=== PATIENT | female | born 1955 | race American Indian/Alaskan Native ===

== ENCOUNTER 2019-07-15 10:38 | Outpatient (CLI) | payer OTHER ==
--- NOTE | 2019-07-15 13:01 | Mammography Report ---
BILATERAL DIGITAL SCREENING MAMMOGRAM WITH CAD INDICATION: Routine screening mammography. TECHNIQUE: Digital bilateral 2D mammography was obtained in the craniocaudal and mediolateral obliq ue projections. This examination was interpreted with the benefit of Computer-Aided Detection asteri s. COMPARISON: 05/07/2018, 05/11/2016, 09/17/2014. FINDINGS: Breast Density: The breasts are almost entirely fatty. No suspicious mass, microcalcifications, or architectural distortion. Stable mild reduction changes b ilaterally. IMPRESSION: No evidence of breast malignancy. Recommend routine screening mammogram in one year. BI-RADS Category 2: Benign. No mammographic evidence of malignancy. Recommend routine screening ma mmography in one year. A "normal" or negative report should not discourage follow up or biopsy of a clinically significant f inding. A written summary of these findings will be mailed to the patient. The patient will be entered into a mammography reporting system which will generate a reminder letter for the patient's next appointmen t at the appropriate interval. The [employer] recommends yearly mammograms starting at age 40 and continuing as l maggie as a woman is in good health. Breast MRI is recommended for women with an approximate 20-25% or greater lifetime risk of breast cancer, including women with a strong family history of breast or ova alonso cancer or who have been treated for Hodgkin's disease. Signer Name: Norman Valencia MD Signed: 07/15/2019 12:56 PM Workstation Name: [id number]
== END 2019-07-15 10:39 | disposition home or self-care (01) ==
LOC: MAMMO 10:38
PROVIDERS: ATTEND Family Medicine
DX: Z12.31 Encounter for screening mammogram for malignant neoplasm of breast (principal); N64.89 Other specified disorders of breast
CPT/HCPCS: 77067

== ENCOUNTER 2021-05-07 10:45 | Emergency (ER) | payer OTHER ==
[2021-05-07] MEDS ORDERED: ASPIRIN 81 MG TAB CHEW PO ONE (11:17)
--- NOTE | 2021-05-07 11:21 | Emergency Department Report ---
ED Chest Pain HPI - General Chief Complaint: Chest Pain Stated Complaint: CHEST PAIN Time Seen by Provider: 05/07/21 11:01 Source: patient Mode of arrival: Ambulatory Limitations: No Limitations - History of Present Illness Initial Comments: 65-year-old -[place] female presents to the emergency department with a complaint of some midsternal chest pain that has been going on intermittently over the past few months. It is associated with some intermittent shortness of breath. She denies any fever, cough, vomiting, back pain, lower extremity swelling, and she denies radiation of the pain. Patient says that sometimes the pain will occur when she is laying down flat, but she is usually able to sit up and the pain will dissipate. She says that sometimes it will occur if she is standing up for a while cooking. However, overall, she denies that exertion brings on the chest pain. Sometimes exertion causes her to have shortness of breath. Patient has not been seen for the symptoms over the past 2 months and finally came in today because it has started to occur more often including multiple times yesterday, overnight, and then again this morning. At the time of my initial examination the patient is asymptomatic. She denies any past medical history other than diet-controlled diabetes. She is not a smoker and denies any illicit drug use. Patient travel to [place] about 1 month ago. She denies any family history of early cardiac disease or ID. The patient did take an aspirin yesterday. - Related Data Allergies Allergy/AdvReac Type Severity Reaction Status Date / Time No Known Allergies Allergy Verified 05/07/21 10:46 Heart Score - HEART Score History: Slightly suspicious EKG: Normal Age: > 65 Risk factors: 1-2 risk factors Troponin: < normal limit HEART Score: 3 - EKG Read Time Time EKG Completed: 10:51 EKG Read Time: 10:55 ED Review of Systems ROS: Stated complaint: CHEST PAIN Other details as noted in HPI Comment: All other systems reviewed and negative Constitutional: denies: chills, fever Eyes: denies: eye pain, vision change ENT: denies: ear pain, throat pain Respiratory: shortness of breath (Intermittent). denies: cough Cardiovascular: chest pain (Intermittent). denies: edema Gastrointestinal: denies: abdominal pain, vomiting Genitourinary: denies: dysuria, discharge Musculoskeletal: denies: back pain, arthralgia Skin: denies: rash, lesions Neurological: denies: headache, weakness ED Past Medical Hx - Past Medical History Hx Diabetes: Yes - Surgical History Past Surgical History?: No - Social History Smoking Status: Never Smoker ED Physical Exam - General Limitations: No Limitations - Other Other exam information: GENERAL: The patient is well-developed well-nourished. HENT: Normocephalic. Atraumatic. Patient has moist mucous membranes. EYES: Extraocular motions are intact. NECK: Supple. Trachea is midline. CHEST/LUNGS: Clear to auscultation. There is no respiratory distress noted. No chest pain to palpation of the chest wall. No crepitus or deformity. HEART/CARDIOVASCULAR: Regular. There is no tachycardia. There is no murmur. ABDOMEN: Abdomen is soft, nontender. Patient has normal bowel sounds. There is no abdominal distention. SKIN: Skin is warm and dry. NEURO: The patient is awake, alert, and oriented. The patient is cooperative. The patient has no focal neurologic deficits. Normal speech. MUSCULOSKELETAL: There is no tenderness or deformity. There is no limitation range of motion. ED Course Vital Signs 05/07/21 05/07/21 05/07/21 11:03 11:08 11:15 Temperature Pulse Rate 61 69 63 Respiratory 18 15 Rate Blood Pressure 159/67 O2 Sat by Pulse 95 99 Oximetry 05/07/21 05/07/21 05/07/21 11:23 11:31 11:45 Temperature 98.0 F Pulse Rate 72 68 60 Respiratory 15 18 Rate Blood Pressure 159/67 159/67 O2 Sat by Pulse 96 Oximetry 05/07/21 05/07/21 05/07/21 12:01 12:15 12:31 Temperature Pulse Rate 63 64 72 Respiratory 14 16 18 Rate Blood Pressure 159/67 159/67 159/67 O2 Sat by Pulse 76 L 92 96 Oximetry 05/07/21 05/07/21 05/07/21 12:45 13:01 13:15 Temperature Pulse Rate 62 63 65 Respiratory 20 14 12 Rate Blood Pressure 159/67 159/67 159/67 O2 Sat by Pulse 97 95 94 Oximetry 05/07/21 05/07/21 05/07/21 13:36 13:45 14:00 Temperature Pulse Rate 89 67 64 Respiratory 19 24 20 Rate Blood Pressure 159/67 138/94 131/111 O2 Sat by Pulse 99 98 Oximetry 05/07/21 05/07/21 05/07/21 14:15 14:32 14:45 Temperature Pulse Rate 64 67 Respiratory 16 12 Rate Blood Pressure 131/111 131/111 O2 Sat by Pulse 91 100 Oximetry 05/07/21 05/07/21 05/07/21 15:01 15:15 15:31 Temperature Pulse Rate 67 69 71 Respiratory 13 9 L 15 Rate Blood Pressure 131/111 131/111 131/111 O2 Sat by Pulse 100 Oximetry 05/07/21 05/07/21 05/07/21 15:45 16:01 16:15 Temperature Pulse Rate 58 L 61 60 Respiratory 11 L 13 12 Rate Blood Pressure 131/111 131/111 131/111 O2 Sat by Pulse 97 100 97 Oximetry 05/07/21 05/07/21 05/07/21 16:31 16:45 17:01 Temperature Pulse Rate 70 74 74 Respiratory 22 22 23 Rate Blood Pressure 131/111 131/111 130/80 O2 Sat by Pulse 81 L 94 95 Oximetry 05/07/21 17:15 Temperature Pulse Rate 73 Respiratory 18 Rate Blood Pressure 130/80 O2 Sat by Pulse 94 Oximetry GRIFFIN score - Griffin Score Age > 65: (0) No Aspirin use within the Past 7 Days: (1) Yes 3 or more CAD Risk Factors: (0) No 2 or more Angina events in past 24 hrs: (1) Yes Known CAD with more than 50% Stenosis: (0) No Elevated Cardiac Markers: (0) No ST Deviation Greater than 0.5mm: (0) No GRIFFIN Score: 2 ED Medical Decision Making - Lab Data Result diagrams: 05/07/21 11:48 05/07/21 11:48 Lab Results 05/07/21 05/07/21 05/07/21 Range/Units 11:48 11:48 11:48 WBC 6.9 (4.5-11.0) K/mm3 RBC 5.36 H (3.65-5.03) M/mm3 Hgb 14.0 (10.1-14.3) gm/dl Hct 43.7 H (30.3-42.9) % MCV 82 (79-97) fl MCH 26 L (28-32) pg MCHC 32 (30-34) % RDW 15.0 (13.2-15.2) % Plt Count 304 (140-440) K/mm3 Lymph % (Auto) 47.2 H (13.4-35.0) % Churchill % (Auto) 7.6 H (0.0-7.3) % Eos % (Auto) 1.9 (0.0-4.3) % Baso % (Auto) 0.9 (0.0-1.8) % Lymph # (Auto) 3.3 (1.2-5.4) K/mm3 Churchill # (Auto) 0.5 (0.0-0.8) K/mm3 Eos # (Auto) 0.1 (0.0-0.4) K/mm3 Baso # (Auto) 0.1 (0.0-0.1) K/mm3 Seg Neutrophils % 42.4 (40.0-70.0) % Seg Neutrophils # 2.9 (1.8-7.7) K/mm3 D-Dimer 386.73 H (0-234) ng/mlDDU Sodium 139 (137-145) mmol/L Potassium 4.1 (3.6-5.0) mmol/L Chloride 103.1 (98-107) mmol/L Carbon Dioxide 23 (22-30) mmol/L Anion Gap 17 mmol/L BUN 7 (7-17) mg/dL Creatinine 0.8 (0.6-1.2) mg/dL Estimated GFR > 60 ml/min BUN/Creatinine Ratio 9 % Glucose 98 (65-100) mg/dL Calcium 9.4 (8.4-10.2) mg/dL Total Bilirubin 0.60 (0.1-1.2) mg/dL AST 17 (5-40) units/L ALT 17 (7-56) units/L Alkaline Phosphatase 83 (35-129) units/L Troponin T (0.00-0.029) ng/mL Total Protein 7.8 (6.3-8.2) g/dL Albumin 3.7 L (3.9-5) g/dL Albumin/Globulin Ratio 0.9 % 05/07/21 05/07/21 Range/Units 12:46 16:09 WBC (4.5-11.0) K/mm3 RBC (3.65-5.03) M/mm3 Hgb (10.1-14.3) gm/dl Hct (30.3-42.9) % MCV (79-97) fl MCH (28-32) pg MCHC (30-34) % RDW (13.2-15.2) % Plt Count (140-440) K/mm3 Lymph % (Auto) (13.4-35.0) % Churchill % (Auto) (0.0-7.3) % Eos % (Auto) (0.0-4.3) % Baso % (Auto) (0.0-1.8) % Lymph # (Auto) (1.2-5.4) K/mm3 Churchill # (Auto) (0.0-0.8) K/mm3 Eos # (Auto) (0.0-0.4) K/mm3 Baso # (Auto) (0.0-0.1) K/mm3 Seg Neutrophils % (40.0-70.0) % Seg Neutrophils # (1.8-7.7) K/mm3 D-Dimer (0-234) ng/mlDDU Sodium (137-145) mmol/L Potassium (3.6-5.0) mmol/L Chloride (98-107) mmol/L Carbon Dioxide (22-30) mmol/L Anion Gap mmol/L BUN (7-17) mg/dL Creatinine (0.6-1.2) mg/dL Estimated GFR ml/min BUN/Creatinine Ratio % Glucose (65-100) mg/dL Calcium (8.4-10.2) mg/dL Total Bilirubin (0.1-1.2) mg/dL AST (5-40) units/L ALT (7-56) units/L Alkaline Phosphatase (35-129) units/L Troponin T < 0.010 < 0.010 (0.00-0.029) ng/mL Total Protein (6.3-8.2) g/dL Albumin (3.9-5) g/dL Albumin/Globulin Ratio % - EKG Data -: EKG Interpreted by Me EKG shows normal: sinus rhythm, axis, intervals, QRS complexes, ST-T waves Rate: normal - EKG Data When compared to previous EKG there are: previous EKG unavailable Interpretation: normal EKG - Radiology Data Radiology results: report reviewed, image reviewed interpreted by me: Chest x-ray does not show any acute process. There are no pleural effusions, obvious pneumonia and there is no pneumothorax. No widened mediastinum. CTA CHEST WITH IV CONTRAST INDICATION / CLINICAL INFORMATION: CP, elevated dimer. TECHNIQUE: Axial CT images were obtained through the chest after injection of 100 mL IV contrast. 3 plane MIP and/or 3D reconstructions were produced. All CT scans at this location are performed using CT dose reduction for ALARA by means of automated exposure control. COMPARISON: Chest radiograph earlier today FINDINGS: PULMONARY ARTERIES: No pulmonary emboli. THORACIC AORTA: No significant abnormality. HEART: No significant abnormality. CORONARY ARTERIES: No significant calcification. PLEURA: No pleural effusion. No pneumothorax. LYMPH NODES: No significant adenopathy. LUNGS: No acute air space or interstitial disease. ADDITIONAL FINDINGS: None. UPPER ABDOMEN: No acute findings. SKELETAL STRUCTURES: No significant osseous abnormality. IMPRESSION: 1. No CT evidence for pulmonary embolism. 2. No acute pulmonary disease. - Medical Decision Making This patient presents to the emergency department with a complaint of intermittent chest pains and intermittent shortness of breath that is been going on over the past few months but has worsened recently. On examination the patient is asymptomatic. Normal sounding heart and lungs to auscultation and the patient does not appear in any respiratory or acute distress. EKG does not have any morphology consistent with ST elevation myocardial infarction. Labs have been mostly unremarkable including CBC, metabolic panel, negative troponins x2, but the patient did have a slightly elevated and equivocal D-dimer level. For this reason a CT angiography of the chest was done that does not show any evidence of pulmonary embolism, dissection, or any other acute process. The patient was reevaluated multiple times over about 6 hours in this emergency department and there has been no return of any chest pain or signs of distress. Vital signs have been reassuring throughout her ED course including being afebrile. She is low on the heart and GRIFFIN score. For all these reasons the patient appears safe for discharge home at this time. Her contact information has been sent over to the [facility], and someone from their office should be contacting her shortly for close outpatient follow-up as part of our [facility] low risk chest pain protocol. Critical Care Time: No Critical care attestation.: If time is entered above; I have spent that time in minutes in the direct care of this critically ill patient, excluding procedure time. ED Disposition Clinical Impression: Atypical chest pain Disposition: HOME / SELF CARE / HOMELESS Is pt being admited?: No Condition: Stable Instructions: Nonspecific Chest Pain, Adult Additional Instructions: Please follow-up with your primary care physician in the next few days. I have sent your contact information over to the [facility], and someone from their office should be contacting you shortly for close outpatient follow-up. Just in case, I am giving you a referral for one of their mechanic insulator, Dr. Yu. Return to the emergency department with any worsening of your symptoms, new or concerning symptoms not addressed during this current emergency department visit, or with any acute distress. Referrals: [facility] [Other] - 3-5 Days CINDI YU MD [Staff Physician] - 3-5 Days Time of Disposition: 17:22
[2021-05-07 11:57] LABS: Basophils # (Auto) 0.1 K/mm3 (0.0-0.1); Basophils % (Auto) 0.9 % (0.0-1.8); Eosinophils # (Auto) 0.1 K/mm3 (0.0-0.4); Eosinophils % (Auto) 1.9 % (0.0-4.3); Hematocrit 43.7 % (30.3-42.9); Lymphocytes # (Auto) 3.3 K/mm3 (1.2-5.4); Lymphocytes % (Auto) 47.2 % (13.4-35.0); Mean Corpuscular HGB Conc 32 % (30-34); Mean Corpuscular Volume 82 fl (79-97); Monocytes # (Auto) 0.5 K/mm3 (0.0-0.8); Monocytes % (Auto) 7.6 % (0.0-7.3); Platelet Count 304 K/mm3 (140-440); Red Blood Count 5.36 M/mm3 (3.65-5.03)
--- NOTE | 2021-05-07 12:10 | XRay Report ---
CHEST 1 VIEW INDICATION / CLINICAL INFORMATION: CP STUDY TIME: 1120 COMPARISON: None currently available FINDINGS: SUPPORT DEVICES: None HEART / MEDIASTINUM: No significant abnormality. LUNGS / PLEURA: No significant acute pulmonary or pleural abnormality. No pneumothorax. ADDITIONAL FINDINGS: No significant additional findings. IMPRESSION: No significant acute abnormality Signer Name: Mario Blackmon MD Signed: 05/07/2021 12:06 PM Workstation Name: [id number]
[2021-05-07 13:26] LABS: Alanine Aminotransferase 17 units/L (7-56); Albumin 3.7 g/dL (3.9-5); BUN/Creatinine Ratio 9; Blood Urea Nitrogen 7 mg/dL (7-17); Calcium 9.4 mg/dL (8.4-10.2); Hemolysis Index 23
--- NOTE | 2021-05-07 14:51 | Cat Scan Report ---
CTA CHEST WITH IV CONTRAST INDICATION / CLINICAL INFORMATION: CP, elevated dimer. TECHNIQUE: Axial CT images were obtained through the chest after injection of 100 mL IV contrast. 3 plane MIP an d/or 3D reconstructions were produced. All CT scans at this location are performed using CT dose redu ction for [facility] by means of automated exposure control. COMPARISON: Chest radiograph earlier today FINDINGS: PULMONARY ARTERIES: No pulmonary emboli. THORACIC AORTA: No significant abnormality. HEART: No significant abnormality. CORONARY ARTERIES: No significant calcification. PLEURA: No pleural effusion. No pneumothorax. LYMPH NODES: No significant adenopathy. LUNGS: No acute air space or interstitial disease. ADDITIONAL FINDINGS: None. UPPER ABDOMEN: No acute findings. SKELETAL STRUCTURES: No significant osseous abnormality. IMPRESSION: 1. No CT evidence for pulmonary embolism. 2. No acute pulmonary disease. Signer Name: Christal Herrera MD Signed: 05/07/2021 2:46 PM Workstation Name: [id number]
[2021-05-07 17:21] VITALS: BP 130/80
--- NOTE | 2021-05-08 13:25 | Electrocardiograph Report ---
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
== END 2021-05-07 17:33 | disposition home or self-care (01) ==
LOC: ED 10:45
DX: R07.89 Other chest pain (principal); E11.8 Type 2 diabetes mellitus with unspecified complications
CPT/HCPCS: 36415; 71045; 71275; 80053; 84484; 85025; 85379; 93005; 99284; Q9967

== ENCOUNTER 2021-10-18 10:12 | Outpatient (CLI) | payer OTHER ==
--- NOTE | 2021-10-19 16:56 | Mammography Report ---
DIGITAL SCREENING MAMMOGRAM WITH CAD, 10/18/2021 CLINICAL INFORMATION / INDICATION: Routine screening mammography. TECHNIQUE: Digital bilateral 2D mammography was obtained in the craniocaudal and mediolateral obliqu e projections. This examination was interpreted with the benefit of Computer-Aided Detection analysis . COMPARISON: 07/15/2019, 05/07/2018 FINDINGS: Breast Density: The breasts are almost entirely fatty. No dominant mass, suspicious calcifications, or architectural distortion in either breast. Post-surgical changes are again noted from bilateral breast reduction. There has been no significant interval change. IMPRESSION: No mammographic evidence of malignancy. Follow up recommendation: Routine yearly BI-RADS Category 2: BENIGN. A "normal" or negative report should not discourage follow up or biopsy of a clinically significant f inding. A written summary of these findings will be mailed to the patient. The patient will be entered into a mammography reporting system which will generate a reminder letter for the patient's next appointmen t at the appropriate interval. The [employer] recommends yearly mammograms starting at age 40 and continuing as l maggie as a woman is in good health. Breast MRI is recommended for women with an approximate 20-25% or greater lifetime risk of breast cancer, including women with a strong family history of breast or ova alonso cancer or who have been treated for Hodgkin's disease. Signer Name: Tammi Vazquez MD Signed: 10/19/2021 4:52 PM Workstation Name: [id number]
== END 2021-10-18 10:13 | disposition home or self-care (01) ==
LOC: MAMMO 10:12
PROVIDERS: ATTEND Family Medicine
DX: Z12.31 Encounter for screening mammogram for malignant neoplasm of breast (principal)
CPT/HCPCS: 77067